=== PATIENT | male | born 1965 | race Caucasian/White ===

== ENCOUNTER 2017-09-19 09:22 | Emergency (ER) | payer OTHER ==
[2017-09-19 09:43] VITALS: BP 134/89
[2017-09-19] MEDS ORDERED: Ondansetron ODT TAB* 4 MG PO ONE (10:04)
--- NOTE | 2017-09-19 10:21 | UC ---
Nausea/Vomiting/Diarrhea HPI - HPI Summary HPI Summary: 52M w/ PMH of DM2 presents with nausea and vomiting for 5 days. He has vomited 13 times today. His kids have similar symptoms. He had cold like symptoms a couple days ago but those resolved with mucinex d. He denies any abdominal pain. He has had multiple episodes of diarrhea. no fevers. no previous abdominal surgeries. did start new med on 09/14 for DM so sugars are controlled now in 130s. sinus congestion has resolved. no sore throat. no chest pain or SOB. denies feeling lightheaded. no recent antibiotic usage. did not eat anything different. <Karen Hsieh - Last Filed: 09/19/17 10:59> - History of Current Complaint Hx Obtained From: Patient Onset/Duration: Lasting Days <Silvia Lea - Last Filed: 09/19/17 21:49> - History of Current Complaint Chief Complaint: UCGI Stated Complaint: VOMITING Time Seen by Provider: 09/19/17 10:06 - Allergies/Home Medications Allergies/Adverse Reactions: Allergies Allergy/AdvReac Type Severity Reaction Status Date / Time Iodine Allergy Intermediate Difficulty Verified 09/19/17 09:43 Breathing Shellfish-derived Products Allergy Difficulty Verified 09/19/17 09:43 Breathing Home Medications: Home Medications Budesonide Flexhaler 180 (NF) [Pulmicort Flexhaler 180 mcg/act (NF)] 180 mcg IN BID PRN 09/19/17 [History Confirmed 09/19/17] Gabapentin CAP(*) [Neurontin 100 mg CAP(*)] 1 dose PO DAILY 09/19/17 [History Confirmed 09/19/17] Metformin HCl 1 dose PO BID 09/19/17 [History Confirmed 09/19/17] Pseudoephedrine-Guaifenesin [Mucinex D 60-600 mg] 1 tab PO BID PRN 09/19/17 [ History Confirmed 09/19/17] Simvastatin [Zocor 5 MG-] 5 mg PO QPM 09/19/17 [History Confirmed 09/19/17] glipiZIDE TAB* [Glucotrol TAB*] 5 mg PO DAILY 09/19/17 [History Confirmed ] PMH/Surg Hx/FS Hx/Imm Hx Endocrine History: Diabetes Cardiovascular History: Hypertension Other History Of: Negative For: HIV, Hepatitis B, Hepatitis C - Surgical History Surgical History: Yes Surgery Procedure, Year, and Place: KNEE SX left. [facility] - Family History Known Family History: Positive: Unknown - Social History Alcohol Use: Occasionally Substance Use Type: None Smoking Status (MU): Never Smoked Tobacco Type: Smokeless Tobacco Length of Time of Smoking/Using Tobacco: 40 Years Have You Smoked in the Last Year: No When Did the Patient Quit Smoking/Using Tobacco: Quit 2013 - Immunization History Most Recent Influenza Vaccination: Not the Season <Karen Hsieh - Last Filed: 09/19/17 10:59> Previously Healthy: No Other Endocrine History: dm Other Cardiovascular History: hypertension Other Respiratory History: none Other GI/ History: none Other Neurological History: none Other Psychological History: none Other Cancer History: none - Surgical History Other Surgical History: none - Social History Lives: With Family <Silvia Lea - Last Filed: 09/19/17 21:49> Review of Systems Constitutional: Negative Respiratory: Negative Cardiovascular: Negative Gastrointestinal: Vomiting, Diarrhea, Nausea All Other Systems Reviewed And Are Negative: Yes <Karen Hsieh - Last Filed: 09/19/17 10:59> Constitutional: Negative All Other Systems Reviewed And Are Negative: Yes <Silvia Lea - Last Filed: 09/19/17 21:49> Physical Exam Triage Information Reviewed: Yes Appearance: Ill-Appearing Vital Signs: Initial Vital Signs Temp 96.8 F 09/19/17 09:29 Pulse 104 09/19/17 09:29 Resp 20 09/19/17 09:29 BP 134/89 09/19/17 09:29 Eyes: Positive: Conjunctiva Clear ENT: Positive: Normal ENT inspection, Pharynx normal, TMs normal Neck: Positive: Supple, Nontender, No Lymphadenopathy Respiratory: Positive: Lungs clear, Normal breath sounds Cardiovascular: Positive: RRR Abdomen Description: Positive: Nontender, Soft Bowel Sounds: Positive: Present Musculoskeletal Exam: Normal Neurological Exam: Normal Psychological Exam: Normal <Karen Hsieh - Last Filed: 09/19/17 10:59> Triage Information Reviewed: Yes Vital Signs: Initial Vital Signs Temp 96.8 F 09/19/17 09:29 Pulse 104 09/19/17 09:29 Resp 20 09/19/17 09:29 BP 134/89 09/19/17 09:29 Vital Signs Reviewed: Yes Skin Exam: Normal <Silvia Lea - Last Filed: 09/19/17 21:49> Naus/Vom/Diarrhea Course/Dx - Course Course Of Treatment: 52M w/ PMH of DM2 presents with nausea and vomiting for 5 days. He has vomited 13 times today. His kids have similar symptoms. He had cold like symptoms a couple days ago but those resolved with mucinex d. He denies any abdominal pain. He has had multiple episodes of diarrhea. no fevers. no previous abdominal surgeries. did start new med on 09/14 for DM so sugars are controlled now in 130s. sinus congestion has resolved. no sore throat. no chest pain or SOB. denies feeling lightheaded. no recent antibiotic usage. did not eat anything different. on exam appears diaporetic and uncomfortable. nontender abdomen. stated could give oral zofran and give liter of fluid but if needs more will need to go to ED. patient requested to go to [facility]. is safe to go by private car. discussed blood pressure which patient is being managed by primary for. medications reviewed. spoke with dr morel at [facility] to inform of transfer. - Differential Dx/Diagnosis Differential Diagnoses - Male: Diverticulitis, Gastroenteritis (Viral), Gastroenteritis (Bacterial), Vomiting, Diarrhea Provider Diagnoses: nausea, vomiting, diarrhea - Physician Notification/Consults Discussed Case/Management/Disposition Of Patient With: dr Morel <Karen Hsieh - Last Filed: 09/19/17 10:59> <Silvia Lea - Last Filed: 09/19/17 21:49> - Differential Dx/Diagnosis Condition At Discharge: Stable Discharge - Discharge Plan Discharge Disposition Comment: to ED by private car <Karen Hsieh - Last Filed: 09/19/17 10:59> <Silvia Lea - Last Filed: 09/19/17 21:49> - Discharge Plan Condition: Stable Disposition: [facility] Prescriptions: Ondansetron ODT TAB* [Zofran 4 MG Odt TAB*] 4 mg PO Q6H PRN #20 tab.odt PRN Reason: Nausea Patient Education Materials: Acute Nausea and Vomiting (ED) Referrals: José Benitez MD [Primary Care Provider] - Additional Instructions: It is advised that you go to the ED for further management of symptoms that may include IV fluids, nausea medication, and labs A script was sent to pharmacy for zofran can take every 6 hours if decide not to go Attestation Statement User Type: Provider - I was available for consult. This patient was seen by the [facility]. The patient was not presented to, seen by, or examined by me. -Kelsey <Silvia Lea - Last Filed: 09/19/17 21:49>
== END 2017-09-19 10:43 | disposition short-term general hospital (02) ==
LOC: UCCORT 09:22
DX: R11.2 Nausea with vomiting, unspecified (principal); R19.7 Diarrhea, unspecified; I10 Essential (primary) hypertension; E11.9 Type 2 diabetes mellitus without complications; Z91.013 Allergy to seafood; Z77.29 Contact with and (suspected) exposure to other hazardous substances; Z91.048 Other nonmedicinal substance allergy status
CPT/HCPCS: 99212; A9270-GY; G0463